=== PATIENT | male | born 1995 | race African-American/Black ===

== ENCOUNTER 2025-05-12 21:40 | Emergency (ER) | payer MEDICAID ==
[~2025-05-12] VITALS: Ht 188 cm; Wt 107.2 kg
[2025-05-12 21:43] VITALS: O2SAT 98
[2025-05-12] MEDS ORDERED: IBUP-2028 MT (22:31)
[2025-05-12 23:31] VITALS: BP 145/76; PULSE 70; RESP 14; TEMP 36.7; O2SAT 98
== END 2025-05-12 23:30 | disposition home or self-care (01) ==
LOC: ER 21:40
DX: S60.221A Contusion of right hand, initial encounter (principal); W23.2XXA Caught, crushed, jammed or pinched between a moving and stationary object, initial encounter; Y93.89 Activity, other specified; Y92.89 Other specified places as the place of occurrence of the external cause; Y99.8 Other external cause status
CPT/HCPCS: 73130; 99283